=== PATIENT | male | born 1940 | race Caucasian/White ===

== ENCOUNTER 2016-08-14 13:07 | Observation (INO) | payer MEDICARE, BC ==
--- NOTE | ~2016-08-14 | HP ---
History And Physical [id number] [place]. [address] NAME: KATHRYN MILES : 36 STATUS : ADM Estela PAT#: [id number] AGE: 76 ADM/REG DATE : 08/14/16 MR#: [id number] REPORT SERV DATE: 08/15/16 DICTATED BY: CURTIS FINK DATE: 08/15/16 REPORT STATUS : Draft TRANSCRIBED BY: MODMark DATE: 08/15/16 DATE OF ADMISSION: 08/14/2016 LIQUOR RUNNER: Zac Leung M.D. CHIEF COMPLAINT: Found in atrial fibrillation with RVR at surgeon's office. HISTORY OF PRESENT ILLNESS: A very pleasant 76-year-old white gentleman with known history of CAD, status post CABG x4 by Dr. Oden in 2003 with ALAN to LAD, vein graft to diagonal, vein graft to OM, and vein graft to PDA, but reports no previous episode of atrial fibrillation to his knowledge. The patient states that he was at his surgeon's office yesterday on 08/14/2016 to have a blepharoplasty. Following some degree of sedation and an EKG being performed he was found to be in atrial fibrillation with RVR, and sent to our facility for further examination and treatment. The patient is unaware of any palpitations. He denies any chest pain, pressure, or tightness. No shortness of breath, anxiety, nausea, diaphoresis, dizziness, or belching. The patient denies any personal history of myocardial infarction, stroke, DVT, or pulmonary embolus. The patient denies any recent fever or chills. He is unaware of any palpitations. No syncopal episodes. Denies PND or orthopnea. The patient receives a SAHIL-VASc score of 5 for age, hypertension, vascular disease, and diabetes. PAST MEDICAL HISTORY: 1. New-onset atrial fibrillation. 2. CAD. a. Status post CABG x4, ALAN to LAD, VG to diagonal, VG to OM, VG to PDA in April [address] Oden. 3. Hypertension. 4. Dyslipidemia. 5. AODM. 6. Blind right eye. 7. History of prostate cancer, treated with radiation. SURGICAL HISTORY: 1. CABG x4, as above. 2. Stomach surgery. 3. Cataract repair. SOCIAL HISTORY: He is with two children. Retired from [employer]. Does not have a structured exercise routine. Quit smoking 60 years ago. Denies alcohol or illicits. FAMILY HISTORY: Mother in her 50s of a heart attack. REVIEW OF SYSTEMS: History And Physical [address] [address] NAME: KATHRYN MILES : 36 STATUS : ADM Estela PAT#: [id number] AGE: 76 ADM/REG DATE : 08/14/16 MR#: [id number] REPORT SERV DATE: 08/15/16 DICTATED BY: CURTIS FINK DATE: 08/15/16 REPORT STATUS : Draft TRANSCRIBED BY: MODL DATE: 08/15/16 A 14-point review of systems performed, significant for HPI including home blood sugar of 160, otherwise complete review of systems obtained and negative. ALLERGIES: NO KNOWN DRUG ALLERGIES. HOME MEDICINES: 1. Amlodipine 10 mg daily. 2. Aspirin 81 mg daily. 3. CoQ10 100 mg daily. 4. Diltiazem CD 120 mg daily. 5. Glipizide/metformin 5/500 twice daily. 6. Labetalol 200 mg twice daily. 7. Pravastatin 40 mg nightly. 8. Ramipril 10 mg daily. PHYSICAL EXAMINATION: BLOOD PRESSURE: 151/73. PULSE: 67. RESPIRATORY RATE: 17. TEMPERATURE: 98.2. O2 saturation 96% on room air. HEIGHT: 5 feet 4 inches. WEIGHT: 161 pounds. BMI: 27.6. GENERAL: Cooperative, in no apparent distress. HEENT: Pupils 2 mm, sclera nonicteric. Nares patent. Moist mucous membranes. No xanthelasma. NECK: Trachea midline, no thyromegaly. No JVD. No bruits. LYMPH: No cervical lymphadenopathy. No supraclavicular lymphadenopathy. RESPIRATORY: Unlabored respirations. Breath sounds clear bilaterally to posterior auscultation. No wheezes or rhonchi. CARDIOVASCULAR: Regular rate. No murmur, rub or gallop appreciated. Extremities without edema. Pulses 2+ bilaterally. ABDOMEN: Soft, nontender, nondistended, normal bowel sounds auscultated throughout. No organomegaly. SKIN: Warm, dry extremities. No pallor, or cyanosis. PSYCHIATRIC: Appropriate affect. Alert, oriented x3. LABORATORY DATA: Troponin less than 0.02 twice. TSH 1.150. Free T4 of 1.03. BNP 486.0. Potassium 4.6, BUN 14, creatinine 1.02, glucose 159, and magnesium 2.0. WBC 6.7, hemoglobin 12.3, hematocrit 36.3, and platelet count 369,000. EKG, sinus rhythm (previously atrial fibrillation). Echo in 2013: EF 63%. LVH secondary to history of hypertension. MPI 08/2008: Harshad stage 2, 5:41 minute, 7 Mets, 5/10 chest pain. Inferior ischemia leading to catheterization. Cath 08/2008 (Thel): ALAN to LAD widely patent, vein graft to OM3 widely patent, vein graft to diagonal occluded, vein graft to PDA is widely patent. EF of 50%. History And Physical [address] [address] NAME: KATHRYN MILES : 36 STATUS : ADM Estela PAT#: [id number] AGE: 76 ADM/REG DATE : 08/14/16 MR#: [id number] REPORT SERV DATE: 08/15/16 DICTATED BY: CURTIS FINK DATE: 08/15/16 REPORT STATUS : Draft TRANSCRIBED BY: MODMark DATE: 08/15/16 ASSESSMENT AND PLAN: 1. New-onset atrial fibrillation, now reverted to sinus rhythm. CHADS-VASC score of 5. We would increase Cardizem CD to 180 mg daily. Add Eliquis 5 mg b.i.d. for CHADS-VASC score of 5. Check echocardiogram. Followup with Dr. Leung. 2. Coronary artery disease. Continue home medications. 3. Hypertension. Monitor blood pressure. Continue home medications. 4. Dyslipidemia. Continue statin. 5. Adult-Onset Diabetes Mellitus. Hold metformin level 1 sliding scale correction. CARLOS/KARLAL GAUDENCIO Geller, LAUNDRY OPERATOR-BC / [id number] CC: GAUDENCIO Geller, LAUNDRY OPERATOR-BC Tala Corona M.D.
[~2016-08-14 13:07] MED LIST: ACIPHEX PO; ALTACE10 MG PO; ASAB PO; CARTIA XT120 MG/24 PO; FISH-EPA1000 MG PO; GLUCOV5 PO; LABETALOL200 MG OR; MULTIVITAMI1 PO; NIACIN 500 PO; NORV10 PO; TRAN200 PO; ZOCOR40 PO
[2016-08-14 13:27] LABS: BASOPHILS 0.4 %; BASOPHILS ABSOLUTE 0.03 10/3/uL (0.0-0.16); EOSINOPHILS 3.3 %; EOSINOPHILS ABSOLUTE 0.22 10/3/uL (0.0-0.53); ER CBC TAT 0 Hrs 05 Mins; HEMOGLOBIN 12.3 g/dL (13.6-17.8); IMMATURE GRANULOCYTES 0.3 %; IMMATURE GRANULOCYTES ABSOLUTE 0.02 10/3/uL (0.0-0.11); LYMPHOCYTES 24.9 %; LYMPHOCYTES ABSOLUTE 1.67 10/3/uL (0.67-4.30); MEAN CORPUS HGB CONC 33.7 g/dL (32.0-36.0); MEAN CORPUSCULAR HEMOGLOB 29.7 pg (26.0-34.0); MEAN CORPUSCULAR VOLUME 88.2 fL (80-100); MEAN PLATELET VOLUME 10.3 fL (9.2-13.0); MONOCYTES 7.6 %; MONOCYTES ABSOLUTE 0.51 10/3/uL (0.21-1.20); NEUTROPHILS 63.5 %; NEUTROPHILS ABSOLUTE 4.27 10/3/uL (2.02-8.40); RBC DISTRIBUTION WIDTH 13.7 % (12.0-16.0); RED CELL COUNT 4.14 10/6/uL (4.7-6.1); WHITE BLOOD CELLS 6.7 10/3/uL (4.5-10.5)
[2016-08-14 13:28] LABS: HEMATOCRIT 36.5 % (40.0-51.0); PLATELET COUNT 369 10/3/uL (150-400)
[2016-08-14 13:29] LABS: MANUAL DIFF NO %
[2016-08-14 13:37] LABS: INTERNATIONAL NORMAL RATI 1.1 UNITS (-); PARTIAL THROMBO TIME 30.9 SEC (22.5-37.2); PROTIME (NOT ORD) 13.9 SEC (12.0-14.5)
[2016-08-14 13:44] LABS: BUN (BLOOD UREA NITROGEN) 14 MG/DL (6-23); CALCIUM, SERUM 9.3 MG/DL (8.5-10.4); CHEST PAIN PROFILE TAT 0 Hrs 22 Mins; CHLORIDE, SERUM 107 MMOL/L (96-112); CO2 (CARBON DIOXIDE) 28 MMOL/L (24-34); CREATININE 1.02 MG/DL (0.70-1.30); GFR AFRICAN AMERICAN 81 ML/MIN (>=60); GFR NON AFRICAN AMERICAN 70 ML/MIN (>=60); POTASSIUM, SERUM 4.6 MMOL/L (3.5-5.3); SODIUM, SERUM 141 MMOL/L (135-148); TROPONIN I <0.02 NG/ML (<0.05)
[2016-08-14 13:45] LABS: GLUCOSE, SERUM 159 MG/DL (60-99)
[2016-08-14 17:12] LABS: WBC (NOT ORDERED) (RFLEX) 0 (0-5)
[2016-08-14 17:32] LABS: ASCORBIC ACID (UR NOT ORDER) NEG (NEG); BILIRUBIN, URINE NEGATIVE (NEG); ER URINALYSIS TAT 0 Hrs 23 Mins; KETONE, URINE NEGATIVE (NEG); LEUKOCYTE ESTERASE(NOT OR NEG (NEG); NITRITE (URINE) NEG (NEG)
[2016-08-14] MEDS ORDERED: TRAN200 PO (18:29)
[2016-08-14] MEDS ORDERED: METAGLIP1 TA2 PO (18:29)
[2016-08-14] MEDS ORDERED: ALTACE10 MG PO (18:29)
[2016-08-14] MEDS ORDERED: NORV10 PO (18:29)
[2016-08-14] MEDS ORDERED: PRAVACHOL40 MG PO (18:30)
[2016-08-14] MEDS ORDERED: CO Q-10100 MG PO (18:30)
[2016-08-14] MEDS ORDERED: ASAB PO (18:30)
[2016-08-14] MEDS ORDERED: CARDCD120 PO (18:30)
[2016-08-15 03:45] LABS: INTERNATIONAL NORMAL RATI 1.3 UNITS (-)
[2016-08-15 03:46] LABS: PARTIAL THROMBO TIME 34.6 SEC (22.5-37.2)
[2016-08-15 03:51] LABS: PROTIME (NOT ORD) 16.2 SEC (12.0-14.5)
[2016-08-15 04:05] LABS: ALBUMIN 3.5 G/DL (3.5-5.0); ALKALINE PHOSPHATASE 68 U/L (45-117); DIRECT BILIRUBIN < 0.1 MG/DL (0.0-0.4); FREE T4 1.03 NG/DL (0.76-1.46); INDIRECT BILIRUBIN(NOT ORDER) 0.2 MG/DL (0.1-0.9); SGOT(AST) 7 U/L (5-40); SGPT(ALT) 12 U/L (5-65); TOTAL BILIRUBIN 0.3 MG/DL (0-1.2); TOTAL PROTEIN 6.6 G/DL (6.0-8.5)
[2016-08-15] MEDS ORDERED: CARDCD180 PO (15:14)
[2016-08-15] MEDS ORDERED: ELIQUIS 5 MG TAB5 MG PO (15:15)
== END 2016-08-15 15:51 | disposition home or self-care (01) ==
LOC: ER 13:07 → CDU1 18:28 → CDU2 19:53
PROVIDERS: Clinical Nurse Specialist; Emergency Medicine
DX: I48.91 Unspecified atrial fibrillation (principal); I10 Essential (primary) hypertension; I25.10 Atherosclerotic heart disease of native coronary artery without angina pectoris; Z95.1 Presence of aortocoronary bypass graft; E78.5 Hyperlipidemia, unspecified; E11.9 Type 2 diabetes mellitus without complications; H54.41 Blindness, right eye, normal vision left eye; Z85.46 Personal history of malignant neoplasm of prostate; Z92.3 Personal history of irradiation; Z98.890 Other specified postprocedural states; Z87.891 Personal history of nicotine dependence; Z79.899 Other long term (current) drug therapy; Z79.82 Long term (current) use of aspirin
CPT/HCPCS: 71020; 80048; 80076; 81001; 83735; 83880; 84439; 84443; 84484; 85025; 85610; 85730; 93005; 93306; 96365; 96375; 96376; 99285; A9270-GY; G0378